=== PATIENT | female | born 1975 | race Asian ===

== ENCOUNTER 2017-12-25 22:13 | Emergency (ER) | payer SELFPAY ==
[~2017-12-25] VITALS: Ht 162.6 cm; Wt 56.2 kg
--- NOTE | 2017-12-25 22:22 | NUR ---
Dr. Bush at bedside for MSE.
--- NOTE | 2017-12-25 22:33 | NUR ---
Xray at bedside.
--- NOTE | 2017-12-25 23:13 | NUR ---
Patient discharged to home in stable conditon. Written and verbal after care instructions given. Patient verbalizes understanding of instructions. Patient ambulated out of ER with steady gait, no acute signs of distress, VSS, all belongings taken.
[2017-12-25 23:14] VITALS: BP 141/92
== END 2017-12-25 23:15 | disposition home or self-care (01) ==
LOC: ER 22:16
DX: S63.602A Unspecified sprain of left thumb, initial encounter (principal); W18.30XA Fall on same level, unspecified, initial encounter; Y93.E1 Activity, personal bathing and showering; Y92.89 Other specified places as the place of occurrence of the external cause; Y99.8 Other external cause status
CPT/HCPCS: 29125; 73130; 99284; A4663